=== PATIENT | male | born 1990 | race Caucasian/White ===

== ENCOUNTER 2023-06-07 14:38 | Emergency (ER) | payer OTHER ==
[~2023-06-07] VITALS: Ht 185.4 cm; Wt 127.3 kg
[2023-06-07] MEDS ORDERED: ZESTRIL40 MG PO (16:07)
[2023-06-07] MEDS ORDERED: HCTZ 25MG TAB25 MG PO (16:08)
[2023-06-07] MEDS ORDERED: ZOLOFT 50MG50 MG PO (16:08)
[2023-06-07] MEDS ORDERED: WELLBUTRIN 75MG75 MG PO (16:09)
[2023-06-07] MEDS ORDERED: MOBIC 7.5MG7.5 MG PO (16:09)
[2023-06-07 16:30] LABS: BASO # 0.1 K/mm3 (0.0-0.2); BASO % 0.4 % (0.0-2.0); EOS # 0.1 K/mm3 (0.0-0.7); EOS % 1.2 % (0.0-4.0); GRAN # 8.9 K/mm3 (1.4-6.5); GRAN % 74.1 % (42.2-75.2); HEMATOCRIT 45.3 % (42.0-52.0); LYMPH # 2.1 K/mm3 (1.2-3.4); LYMPH % 17.7 % (20.0-51.0); MEAN CELL VOLUME 88 fl (80.0-100.0); MEAN CORPUSCULAR HEMOGLOBIN 29 pg (27-31); MEAN CORPUSCULAR HGB CONC 33 g/dl (33.0-37.0); MEAN PLATELET VOLUME 9.9 fl (7.4-10.4); MONO # 0.7 K/mm3 (0.1-0.6); MONO % 6.2 % (1.7-9.3); PLATELET COUNT 318 K/mm3 (130-400); RED BLOOD COUNT 5.17 M/mm3 (4.20-5.60); REDCELL DISTRIBUTION WIDTH-CV 12.7 % (11.5-14.5)
[2023-06-07 16:49] LABS: ALANINE AMINOTRANSFERASE 29 U/L (0-55); ALBUMIN 4.2 gm/dL (3.5-5.0); ALKALINE PHOSPHATASE 71 U/L (40-150); ANION GAP 13 mmol/L (7-16); AST,SGOT 21 U/L (5-34); BILIRUBIN,TOTAL 0.4 mg/dL (0.2-1.2); BLOOD UREA NITROGEN 25 mg/dL (9-21); CALCIUM 9.6 mg/dL (8.4-10.2); CARBON DIOXIDE 18 mmol/L (22-29); CHLORIDE 107 mmol/L (98-107); CREATININE, serum 1.29 mg/dL (0.72-1.25); GLUCOSE 119 mg/dL (70-99); POTASSIUM 4.2 mmol/L (3.5-4.5); SODIUM 138 mmol/L (136-145); TOTAL PROTEIN 7.5 gm/dL (6.2-8.1)
[2023-06-07 16:55] LABS: TROPONIN-I < 0.010 ng/mL (0.00-0.033)
[2023-06-07 18:34] VITALS: BP 113/71; PULSE 54; TEMP 98.1
== END 2023-06-07 18:34 | disposition home or self-care (01) ==
LOC: COL.ER 14:38
PROVIDERS: Physician Assistant
DX: R07.89 Other chest pain (principal); R06.00 Dyspnea, unspecified
CPT/HCPCS: J7030; Q9967